=== PATIENT | female | born 1980 | race Caucasian/White ===

== ENCOUNTER 2019-10-15 08:57 | Emergency (ER) | payer SELFPAY ==
[2019-10-15 09:03] VITALS: TEMP 97.8
[2019-10-15] MEDS ORDERED: SODIUM CHLORIDE 0.9% 1000 ML INFUS.BAG IV ONE (10:07)
[2019-10-15] MEDS ORDERED: ONDANSETRON 4 MG/2 ML VIAL IVPUSH ONE (10:07)
[2019-10-15] MEDS ORDERED: ONDANSETRON 4 MG/2 ML VIAL ONE (10:38)
[2019-10-15 10:45] LABS: BASO % 0.6 % (0-2.0); EOS % 0.7 % (0-4.5); HEMATOCRIT 34.3 % (32.4-45.2); HEMOGLOBIN 11.2 GM/dL (10.7-15.3); LYMPH % 12.5 % (8-40); MCH 26.1 pg (25.7-33.7); MCHC 32.7 g/dl (32.0-36.0); MEAN CELL VOLUME 79.8 fl (80-96); MEAN PLT VOLUME 7.5 fl (7.5-11.1); MONO % 3.2 % (3.8-10.2); PLATELET COUNT 389 K/MM3 (134-434); RBC 4.29 M/mm3 (3.60-5.2); WHITE BLOOD COUNT 9.6 K/mm3 (4.0-10.0)
[2019-10-15 11:16] LABS: ALBUMIN 3.7 g/dl (3.4-5.0); ALK PHOS 58 U/L (45-117); ANION GAP 6 MMOL/L (8-16); BILIRUBIN,TOTAL 0.4 mg/dL (0.2-1); BLOOD UREA NITROGEN 6.2 mg/dL (7-18); CHLORIDE 108 mmol/L (98-107); CO2 26 mmol/L (21-32); CREATININE 0.7 mg/dL (0.55-1.3); GLUCOSE,RANDOM 101 mg/dL (74-106); POTASSIUM 3.7 mmol/L (3.5-5.1); SGOT/AST 19 U/L (15-37); SGPT/ALT 25 U/L (13-61); SODIUM 140 mmol/L (136-145); TOT PROT 7.9 g/dl (6.4-8.2)
[2019-10-15] MEDS ORDERED: MECLIZINE HCL 25 MG TABLET (FP) PO ONE (11:46)
[2019-10-15] MEDS ORDERED: diazePAM 2 MG TABLET PO ONE (11:46)
--- NOTE | 2019-10-15 11:52 | PDOC ---
Attending Attestation - Resident Resident Name: Fred Dozierony - ED Attending Attestation I have performed the following: I have examined & evaluated the patient, The case was reviewed & discussed with the resident, I agree w/resident's findings & plan - HPI HPI: 10/15/19 11:47 Healthy 39-year-old female with no significant past medical history presents with positional vertigo since this morning. Patient was in her usual state of good health, when she sat up from bed this morning felt vertigo without headache or ear pain or ringing, resolves with staying still, recurs with any positional changes such as head rotation or sitting/standing. No fevers or chills, no vision change, no other focal deficits. Children had URI recently, patient herself has been feeling well. No history of vertigo. - Physicial Exam PE: 10/15/19 11:49 Vital signs stable, negative Lying in stretcher with eyes closed, alert to verbal, coherent and cooperative Pupils are equal round reactive to light, extraocular movements are intact, leftward gaze reproduces vertigo but no nystagmus was noted. NEURO: Mental status: The patient is alert and oriented x3. Cranial nerves: Cranial nerves II through XII are intact Motor: The upper extremities are 5 over 5 in all muscle groups. The lower extremities are 5 over 5 in all muscle groups. No pronator drift. Sensation: Sensation is intact to light touch throughout. Cerebellar: Rfrash-lwliwo-cvau is normal in both upper extremities. Heel-knee- franklin is normal in both lower extremities. Reflexes: 2+ and symmetric in the upper and lower extremities. Gait: Normal. Heel and toe walking are normal. Tandem gait is normal. - Medical Decision Making 10/15/19 11:52 39-year-old female in usual state of good health until this morning, when she awoke with positional vertigo. Symptoms are intermittent, neurological exam is nonfocal, patient has no complaint of headache or fever. Presentation seems most consistent with benign positional vertigo, exam is reassuring. IV fluids, antiemetics, meclizine and Valium trial Labs sent and within normal limits EKG is normal sinus without ischemia No indication for emergent imaging Reassess after medications Heart Score/ECG Review #1 ECG reviewed & interpreted by me at: 10:21 General ECG Interpretation: Sinus Rhythm, Normal Rate (53), Normal Intervals ( qtc 418), No acute ischemic changes
--- NOTE | 2019-10-15 11:57 | PDOC ---
History of Present Illness - General Chief Complaint: Lightheaded Stated Complaint: DIZZY/LIGHT HEADED/NAUSEA Time Seen by Provider: 10/15/19 09:34 History Source: Patient Exam Limitations: No Limitations - History of Present Illness Initial Comments: 10/15/19 10:23 39F with a PMH of migraines who presents to the ER with complaints of dizziness. The patient states that she had sudden onset vertiginous dizziness at 0700 when she tried to get out of bed this morning. She states she became nauseous and vomited mucous-like "stuff" 2-3 times. She admits to current nausea and dizziness but denies headache, fever, chills, vision changes, numbness, tingling, weakness, CP, SOB. She has not had these symptoms before. Past History - Past Medical History Allergies/Adverse Reactions: Allergies Allergy/AdvReac Type Severity Reaction Status Date / Time No Known Allergies Allergy Verified 10/15/19 09:00 COPD: No Other medical history: migraines - Psycho Social/Smoking Cessation Hx Smoking History: Never smoked Have you smoked in the past 12 months: No Information on smoking cessation initiated: No Hx Alcohol Use: No Drug/Substance Use Hx: No Review of Systems - Review of Systems Able to Perform ROS?: Yes Comments:: 10/15/19 12:03 GENERAL/CONSTITUTIONAL: No fever or chills. No weakness. HEAD, EYES, EARS, NOSE AND THROAT: No change in vision. No ear pain or discharge. No sore throat. CARDIOVASCULAR: No chest pain, palpitations, or lightheadedness. RESPIRATORY: No cough, wheezing, shortness of breath, or hemoptysis. GASTROINTESTINAL: + for nausea and vomiting. No abdominal pain, diarrhea, or constipation. GENITOURINARY: No dysuria, frequency, hematuria, or change in urination. MUSCULOSKELETAL: No joint or muscle swelling or pain. No neck or back pain. SKIN: No rash or lesions. NEUROLOGIC: + for vertiginous dizziness. No headache, numbness, tingling, focal weakness, loss of consciousness, or change in strength/sensation. Is the patient limited Spanish proficient: No *Physical Exam - Vital Signs Last Vital Signs Temp Pulse Resp BP Pulse Ox 97.8 F 63 18 134/88 100 10/15/19 09:01 10/15/19 09:01 10/15/19 09:01 10/15/19 09:01 10/15/19 09:01 - Physical Exam 10/15/19 12:03 GENERAL: Well developed, well nourished. Awake and alert. No acute distress. HEENT: Normocephalic, atraumatic. Hearing grossly normal. Moist mucous membranes. PERRLA, EOMI. No conjunctival pallor. Sclera are non-icteric. Oropharynx is clear. NECK: Supple. Full ROM. No JVD. CARDIOVASCULAR: Regular rate and rhythm. No murmurs, rubs, or gallops. PULMONARY: No evidence of respiratory distress. Lungs clear to auscultation bilaterally. No wheezing, rales, or rhonchi. ABDOMINAL: Soft. Non-tender. Non-distended. No rebound or guarding. GENITOURINARY: No CVA tenderness bilaterally. MUSCULOSKELETAL: Normal range of motion at all joints. No bony deformities or tenderness. EXTREMITIES: No cyanosis. No clubbing. No edema. No calf tenderness or swelling. SKIN: Warm and dry. Normal capillary refill. No rashes. No jaundice. NEUROLOGICAL: Alert, awake, appropriate. Cranial nerves 2-12 intact. No deficits to light touch and temperature in face, upper extremities and lower extremities. 5/5 strength in deltoids, biceps, triceps, quadriceps, hamstrings, and gastrocnemius. Finger to nose normal bilaterally. Normal speech. Gait is normal without ataxia. PSYCHIATRIC: Cooperative. Good eye contact. Appropriate mood and affect. ED Treatment Course - LABORATORY CBC & Chemistry Diagram: 10/15/19 10:32 10/15/19 10:32 Medical Decision Making - Medical Decision Making 10/15/19 12:04 39F with a PMH of migraines who presents to the ER with complaints of vertiginous dizziness. Despite the first time onset of this dizziness, the patient states that she had 3-4 days of a "cold", and does not have red flag symptoms like h/a, slow onset, without tinnitus or diplopia, no hearing loss making BPPV a highly likely diagnosis and does not require further imaging. Pt has no PE findings warranting further imaging. Will treat symptomatically and reassess. Labs WNL. 10/15/19 12:54 Pt states that she has improvement in her sx. Will continue to monitor. 10/15/19 13:37 Pt states she feels much better and has improvement of symptoms. Will PO challenge and d/c with neuro f/u. Discharge - Discharge Information Problems reviewed: Yes Clinical Impression/Diagnosis: Vertiginous syndrome Condition: Good Disposition: HOME - Admission No - Follow up/Referral Referrals: Jamal Christie MD [Staff Physician] - - Patient Discharge Instructions Patient Printed Discharge Instructions: DI for Vertigo Additional Instructions: Your ER visit is not complete until your follow up with your primary care physician. Please follow up with your primary care physician in 1-2 days. Also, please follow up with Dr. Christie for your symptoms. Please return to the ER if you have any signs or symptoms of chest pain, shortness of breath, uncontrollable fever, chills, nausea, vomiting, numbness, tingling, or weakness in any part of your body, changes in vision, or slurred speech. Please return to the ER if symptoms persist, worsen, or new symptoms arise. - Post Discharge Activity
[2019-10-15] MEDS ORDERED: MECLIZINE HCL 25 MG TABLET (FP) ONE (12:24)
[2019-10-15] MEDS ORDERED: diazePAM 2 MG TABLET ONE (12:24)
[2019-10-15 13:41] VITALS: BP 114/74; PULSE 64
--- NOTE | 2019-10-16 10:44 | EKG ---
Test Reason : Blood Pressure : / mmHG Vent. Rate : 053 BPM Atrial Rate : 053 BPM P-R Int : 164 ms QRS Dur : 092 ms QT Int : 446 ms P-R-T Axes : 034 073 038 degrees QTc Int : 418 ms SINUS BRADYCARDIA RSR' OR QR PATTERN IN V1 SUGGESTS RIGHT VENTRICULAR CONDUCTION DELAY BORDERLINE ECG NO PREVIOUS ECGS AVAILABLE Confirmed by Speedy Christian MD ([id number]) on 10/16/2019 10:43:48 AM Referred By: Confirmed By:Speedy Christian MD
== END 2019-10-15 13:49 | disposition home or self-care (01) ==
LOC: JER 08:57
PROC: 3E033GC Introduction of Other Therapeutic Substance into Peripheral Vein, Percutaneous Approach (ICD-10-PCS; principal; 2019-10-15)
DX: H81.8X9 Other disorders of vestibular function, unspecified ear (principal)
CPT/HCPCS: 36415; 80053; 84484; 84703; 85025; 93005; 93010; 99284-25; J7030